=== PATIENT | male | born 1980 | race Two or more races ===

== ENCOUNTER 2023-03-24 22:58 | Emergency (ER) | payer OTHER, SELFPAY ==
[~2023-03-24] VITALS: Ht 185.4 cm; Wt 75.3 kg
[2023-03-24 22:58] VITALS: BP 133/91; TEMP 98.6; O2SAT 98
[2023-03-25] MEDS ORDERED: PRED20TA PO (00:54)
[2023-03-25] MEDS ORDERED: predniSONE 20 MG TAB PO ONE (01:05)
== END 2023-03-25 01:09 | disposition home or self-care (01) ==
LOC: M ED 22:58
DX: L25.9 Unspecified contact dermatitis, unspecified cause (principal); F12.10 Cannabis abuse, uncomplicated; Z79.52 Long term (current) use of systemic steroids
CPT/HCPCS: 99282; J7512

== ENCOUNTER → 2024-03-26 | Outpatient (REF) | payer OTHER ==
[~2024-03-26] MED LIST: PRED20TA PO
== END ==
LOC: M LAB REF 12:17
PROVIDERS: ATTEND Registered Nurse
DX: H60.92 Unspecified otitis externa, left ear (principal)